=== PATIENT | female | born 1990 | race Caucasian/White ===

== ENCOUNTER → 2024-09-26 15:15 | Outpatient (REF) | payer OTHER, SELFPAY | LOC: PNTC 15:15 | PROVIDERS: ATTENDING PHYSICIAN Obstetrics & Gynecology | DX: Z36.0 Encounter for antenatal screening for chromosomal anomalies (principal); Z36.82 Encounter for antenatal screening for nuchal translucency | CPT/HCPCS: 76801; 76813 ==

== ENCOUNTER → 2024-11-21 14:44 | Outpatient (REF) | payer OTHER, SELFPAY | LOC: PNTC 14:44 | PROVIDERS: ATTENDING PHYSICIAN Obstetrics & Gynecology | DX: O09.819 Supervision of pregnancy resulting from assisted reproductive technology, unspecified trimester (principal); N80.9 Endometriosis, unspecified; M45.9 Ankylosing spondylitis of unspecified sites in spine; O99.891 Other specified diseases and conditions complicating pregnancy | CPT/HCPCS: 76811; 76817 ==

== ENCOUNTER → 2025-01-08 16:48 | Outpatient (REF) | payer OTHER, SELFPAY | LOC: PNTC 16:48 | PROVIDERS: ATTENDING PHYSICIAN Obstetrics & Gynecology | DX: O24.419 Gestational diabetes mellitus in pregnancy, unspecified control (principal) | CPT/HCPCS: 76816 ==

== ENCOUNTER → 2025-01-09 08:40 | Outpatient (REF) | payer OTHER, SELFPAY ==
--- NOTE | 2025-01-09 07:46 | PN.DIAED06 ---
Meal Plan - Gestational
- Breakfast
Gestational Diabetes Meal Plan Name: 1800 calories
Breakfast - Total Carbohydrate (grams): 30 (no fruit before noon)
Breakfast - Starch Carbohydrate: 1
Breakfast - Fruit Carbohydrate: 0
Breakfast - Milk Carbohydrate: 1
Breakfast - Nonstarchy Vegetables: Yes
Breakfast - Meat/Protein: 1
Breakfast - Fat: 2
- Morning Snack
Morning Snack - Total Carbohydrate (grams): 30 (no fruit before noon)
Morning Snack - Starch Carbohydrate: 1
Morning Snack - Fruit Carbohydrate: 0
Morning Snack - Milk Carbohydrate: 1
Morning Snack - Nonstarchy Vegetables: Yes
Morning Snack - Meat/Protein: 0.5
Morning Snack - Fat: 0
- Lunch
Lunch - Total Carbohydrate (grams): 45
Lunch - Starch Carbohydrate: 2
Lunch - Fruit Carbohydrate: 1
Lunch - Milk Carbohydrate: 0
Lunch - Nonstarchy Vegetables: Yes
Lunch - Meat/Protein: 2
Lunch - Fat: 1
- Afternoon Snack
Afternoon Snack - Total Carbohydrate (grams): 30
Afternoon Snack - Starch Carbohydrate: 1
Afternoon Snack - Fruit Carbohydrate: 1
Afternoon Snack - Milk Carbohydrate: 0
Afternoon Snack - Nonstarchy Vegetables: Yes
Afternoon Snack - Meat/Protein: 1
Afternoon Snack - Fat: 0
- Dinner
Dinner - Total Carbohydrate (grams): 45
Dinner - Starch Carbohydrate: 2
Dinner - Fruit Carbohydrate: 0
Dinner - Milk Carbohydrate: 1
Dinner - Nonstarchy Vegetables: Yes
Dinner - Meat/Protein: 2
Dinner - Fat: 2
- Evening Snack
Evening Snack - Total Carbohydrate (grams): 30
Evening Snack - Starch Carbohydrate: 1
Evening Snack - Fruit Carbohydrate: 0
Evening Snack - Milk Carbohydrate: 1
Evening Snack - Nonstarchy Vegetables: Yes
Evening Snack - Meat/Protein: 1
Evening Snack - Fat: 1
--- NOTE | 2025-01-09 10:06 | PN.DE ---
Diabetes Education
- -
01/09/2025 GESTATIONAL DIABETES CONSULT
Met with Ms. Maharaj today for medical nutrition therapy, she is G1, P1, with BRITNEY 04/04/2025.
Explained glucose metabolism in body and what occurs during to cause increase blood sugar. Discussed importance of keeping BS well controlled to avoid complications to the baby during and after (macrosomia, hypoglycemia).
Discussed macronutrients, provided with 1800 jm GDM meal plan, she admits to eating a lot of carbs and chocolate prior to GSD diagnosis.
Discussed physical activity, however, she is currently not exercising other than walking her dog. Daniela was encouraged to start exercising by taking a walk daily after each meal if possible and working up to 30 minutes a day. She was receptive
to the idea and stated that she would make the effort to start exercising.
Serenity presented to the appointment with a new Accu-Chek glucometer with supplies. Reviewed proper testing technique, testing sites and testing pattern. She is aware to test FBS and 2 hr pp each meal. Expected results for FBS <95 mg/dl and 2 hr pp
<120 mg/dl. Noted for blood sugar of 117mg/dL this morning, she did not eat a meal but did have a taste of peanut butter. Log sheet provided for her to record results, she will send a 4-day meal log with all her FBG and 2hr Post prandial glucose
numbers to this office for review. In addition, she will send all her glucose readings [facility] every Tuesday.
She was encouraged to reach out should she require insulin.
== END ==
LOC: DES 08:40
PROVIDERS: ATTENDING PHYSICIAN Obstetrics & Gynecology
DX: O24.419 Gestational diabetes mellitus in pregnancy, unspecified control (principal)
CPT/HCPCS: 99078

== ENCOUNTER → 2025-01-24 11:44 | Outpatient (REF) | payer OTHER, SELFPAY | LOC: DES 11:44 | PROVIDERS: ATTENDING PHYSICIAN Obstetrics & Gynecology | DX: O24.419 Gestational diabetes mellitus in pregnancy, unspecified control (principal) | CPT/HCPCS: 99078 ==

== ENCOUNTER → 2025-02-13 15:53 | Outpatient (REF) | payer OTHER, SELFPAY | LOC: PNTC 15:53 | PROVIDERS: ATTENDING PHYSICIAN Student in an Organized Health Care Education/Training Program | DX: O09.819 Supervision of pregnancy resulting from assisted reproductive technology, unspecified trimester (principal); O24.414 Gestational diabetes mellitus in pregnancy, insulin controlled | CPT/HCPCS: 59025; 76816 ==

== ENCOUNTER → 2025-02-18 15:52 | Outpatient (REF) | payer OTHER, SELFPAY | LOC: PNTC 15:52 | PROVIDERS: ATTENDING PHYSICIAN Obstetrics & Gynecology | DX: O09.529 Supervision of elderly multigravida, unspecified trimester (principal); O24.419 Gestational diabetes mellitus in pregnancy, unspecified control; O09.819 Supervision of pregnancy resulting from assisted reproductive technology, unspecified trimester | CPT/HCPCS: 59025; 76818 ==

== ENCOUNTER → 2025-02-25 16:24 | Outpatient (REF) | payer OTHER, SELFPAY | LOC: PNTC 16:24 | PROVIDERS: ATTENDING PHYSICIAN Obstetrics & Gynecology | DX: O09.529 Supervision of elderly multigravida, unspecified trimester (principal) | CPT/HCPCS: 59025; 76815 ==

== ENCOUNTER → 2025-03-04 16:26 | Outpatient (REF) | payer OTHER, SELFPAY | LOC: PNTC 16:26 | PROVIDERS: ATTENDING PHYSICIAN Obstetrics & Gynecology | DX: O09.813 Supervision of pregnancy resulting from assisted reproductive technology, third trimester (principal); M45.9 Ankylosing spondylitis of unspecified sites in spine; O24.414 Gestational diabetes mellitus in pregnancy, insulin controlled | CPT/HCPCS: 59025; 76815 ==

== ENCOUNTER → 2025-03-11 16:32 | Outpatient (REF) | payer OTHER, SELFPAY | LOC: PNTC 16:32 | PROVIDERS: ATTENDING PHYSICIAN Obstetrics & Gynecology | DX: O09.819 Supervision of pregnancy resulting from assisted reproductive technology, unspecified trimester (principal); O24.414 Gestational diabetes mellitus in pregnancy, insulin controlled; M45.9 Ankylosing spondylitis of unspecified sites in spine | CPT/HCPCS: 59025; 76816 ==

== ENCOUNTER → 2025-03-18 16:39 | Outpatient (REF) | payer OTHER, SELFPAY | LOC: PNTC 16:39 | PROVIDERS: ATTENDING PHYSICIAN Obstetrics & Gynecology | DX: O24.414 Gestational diabetes mellitus in pregnancy, insulin controlled (principal); O09.819 Supervision of pregnancy resulting from assisted reproductive technology, unspecified trimester; M45.9 Ankylosing spondylitis of unspecified sites in spine | CPT/HCPCS: 59025 ==

== ENCOUNTER → 2025-03-25 16:31 | Outpatient (REF) | payer OTHER, SELFPAY | LOC: PNTC 16:31 | PROVIDERS: ATTENDING PHYSICIAN Obstetrics & Gynecology | DX: O09.819 Supervision of pregnancy resulting from assisted reproductive technology, unspecified trimester (principal) | CPT/HCPCS: 59025; 76815 ==

== ENCOUNTER 2025-03-30 11:44 | Observation (INO) | payer OTHER, SELFPAY ==
[2025-03-30 12:12] VITALS: BP 125/72; BMI 31.2
[2025-03-30 12:54] LABS: Hematocrit 37.0 % (37.0-47.0); Hemoglobin 13.0 g/dL (12.0-16.0); Mean Corp Hgb Conc. 35.1 g/dL (33.0-37.0); Mean Corpuscular Volume 89.6 fL (81.0-99.0); Nucleated Red Blood Cells % 0 %; Platelet Count 187 10^3/uL (130-400); Red Cell Dist. Width 13.4 % (11.5-14.5)
[2025-03-30 13:18] LABS: ALT (SGPT) 15 U/L (0-35); AST (SGOT) 22 U/L (14-36); Albumin 3.8 g/dl (3.5-5.0); Alkaline Phosphatase 167 U/L (38-126); Blood Urea Nitrogen 10 mg/dl (7-17); Calcium 9.3 mg/dl (8.4-10.2); Carbon Dioxide 21 mmol/L (22-30); Chloride 108 mmol/L (98-107); Estimated Creatinine Clearance 117 ml/min; Glucose 131 mg/dl (70-99); Potassium 4.6 mmol/L (3.5-5.1); Sodium 135 mmol/L (135-145); Total Protein 6.9 g/dl (6.3-8.2); Uric Acid 5.4 mg/dl (2.5-6.2); eGFR > 60.00
[2025-03-30 13:23] LABS: Urine Character Clear (Clear)
[2025-03-30 13:45] LABS: Urine Red Blood Cell None Seen /HPF (0-2); Urine Squamous Cell >30 /LPF (Few); Urine White Cell 0-2 /HPF (0-5)
== END 2025-03-30 15:31 | disposition home or self-care (01) ==
LOC: LDRP 11:44
PROVIDERS: ADMITTING PHYSICIAN Obstetrics & Gynecology
DX: O26.893 Other specified pregnancy related conditions, third trimester (principal); R11.0 Nausea; Z3A.39 39 weeks gestation of pregnancy
CPT/HCPCS: 59025; 80053; 81003; 81015; 82570; 84156; 84550; 85025; 86850; 86900; 86901; G0378

== ENCOUNTER 2025-04-01 17:53 | Inpatient (IN) | payer OTHER, SELFPAY ==
[2025-04-01 17:29] VITALS: BP 151/88; BMI 26.8
[2025-04-01 17:31] LABS: Hematocrit 35.8 % (37.0-47.0); Hemoglobin 12.8 g/dL (12.0-16.0); Mean Corp Hgb Conc. 35.8 g/dL (33.0-37.0); Mean Corpuscular Volume 89.7 fL (81.0-99.0); Platelet Count 182 10^3/uL (130-400); Red Cell Dist. Width 13.5 % (11.5-14.5)
[2025-04-01 17:52] LABS: ALT (SGPT) 14 U/L (0-35); AST (SGOT) 20 U/L (14-36); Albumin 3.6 g/dl (3.5-5.0); Alkaline Phosphatase 149 U/L (38-126); Blood Urea Nitrogen 12 mg/dl (7-17); Calcium 9.4 mg/dl (8.4-10.2); Carbon Dioxide 22 mmol/L (22-30); Chloride 108 mmol/L (98-107); Estimated Creatinine Clearance 119 ml/min; Glucose 106 mg/dl (70-99); Potassium 4.4 mmol/L (3.5-5.1); Sodium 134 mmol/L (135-145); Total Protein 6.6 g/dl (6.3-8.2); eGFR > 60.00
[2025-04-01] MEDS: PEPCID 20 MG PO (19:18)
[2025-04-01] MEDS: CYTOTEC 25 MICROGRAM VAG (20:15)
[2025-04-01 22:08] LABS: Glucose - Point of Care 106 mg/dl (70-99)
[2025-04-01] MEDS: HUMULIN N KWIKPEN 20 UNITS SC (22:09)
[2025-04-02] MEDS: CYTOTEC 50 MICROGRAM PO ×3 (00:29→10:23)
[2025-04-02] MEDS: STADOL 1 MG IV ×3 (04:11→12:15)
[2025-04-02 07:11] LABS: Glucose - Point of Care 81 mg/dl (70-99)
[2025-04-02] MEDS: PEPCID 20 MG PO ×2 (08:07→22:47)
[2025-04-02 10:13] LABS: Glucose - Point of Care 107 mg/dl (70-99)
[2025-04-02] MEDS: CYTOTEC PO ×3 (12:31→21:42)
[2025-04-02 12:37] LABS: Glucose - Point of Care 91 mg/dl (70-99)
[2025-04-02] MEDS: PITOCIN 30 UNITS/NSS 500 ML IV (14:29)
[2025-04-02] MEDS: LR 1000 IV (14:29)
[2025-04-02 14:39] LABS: Glucose - Point of Care 89 mg/dl (70-99)
[2025-04-02 16:17] LABS: Glucose - Point of Care 85 mg/dl (70-99)
[2025-04-02] MEDS: FENTANYL/BUPIVACAINE 100 EPIDURAL (17:42)
[2025-04-02] MEDS: SUBLIMAZE 100 MCG EPIDURAL (17:42)
[2025-04-02 18:04] LABS: Glucose - Point of Care 77 mg/dl (70-99)
[2025-04-02 20:07] LABS: Glucose - Point of Care 150 mg/dl (70-99)
[2025-04-02 22:01] LABS: Glucose - Point of Care 65 mg/dl (70-99)
[2025-04-02 22:22] LABS: Glucose - Point of Care 71 mg/dl (70-99)
[2025-04-02 23:58] LABS: Glucose - Point of Care 77 mg/dl (70-99)
[2025-04-03] MEDS: FENTANYL/BUPIVACAINE 100 EPIDURAL ×2 (00:31→07:32)
[2025-04-03] MEDS: LR 1000 IV (01:59)
[2025-04-03 02:04] LABS: Glucose - Point of Care 78 mg/dl (70-99)
[2025-04-03 04:04] LABS: Glucose - Point of Care 75 mg/dl (70-99)
[2025-04-03 06:07] LABS: Glucose - Point of Care 68 mg/dl (70-99)
[2025-04-03 06:23] LABS: Glucose - Point of Care 79 mg/dl (70-99)
[2025-04-03] MEDS: ZITHROMAX INFUSION 250 IV (08:35)
[2025-04-03] MEDS: ANCEF 10 IV (08:35)
[2025-04-03] MEDS: BICITRA 30 ML PO (08:43)
[2025-04-03] MEDS: TYLENOL 975 MG PO (08:43)
[2025-04-03] MEDS: PITOCIN 30 UNITS/NSS 500 ML IV (10:15)
[2025-04-03] MEDS: PROCARDIA XL (EXTENDED RELEASE) 30 MG PO (12:11)
[2025-04-03 12:34] LABS: Hematocrit 33.9 % (37.0-47.0); Hemoglobin 12.0 g/dL (12.0-16.0); Mean Corp Hgb Conc. 35.4 g/dL (33.0-37.0); Mean Corpuscular Volume 88.7 fL (81.0-99.0); Platelet Count 154 10^3/uL (130-400); Red Cell Dist. Width 13.4 % (11.5-14.5)
[2025-04-03 13:00] LABS: AST (SGOT) 26 U/L (14-36); Albumin 3.2 g/dl (3.5-5.0); Alkaline Phosphatase 155 U/L (38-126); Blood Urea Nitrogen 7 mg/dl (7-17); Calcium 9.0 mg/dl (8.4-10.2); Carbon Dioxide 22 mmol/L (22-30); Chloride 110 mmol/L (98-107); Estimated Creatinine Clearance 119 ml/min; Glucose 104 mg/dl (70-99); Potassium 4.0 mmol/L (3.5-5.1); Sodium 134 mmol/L (135-145); Total Protein 6.0 g/dl (6.3-8.2); eGFR > 60.00
[2025-04-03 13:27] LABS: ALT (SGPT) 14 U/L (0-35)
[2025-04-03] MEDS: ROXICODONE 10 MG PO (17:49)
[2025-04-03] MEDS: TYLENOL 650 MG PO ×2 (17:49→23:38)
[2025-04-03] MEDS: COLACE 100 MG PO (20:23)
[2025-04-03] MEDS: ROXICODONE 5 MG PO (23:39)
[2025-04-04] MEDS: ROXICODONE 5 MG PO ×3 (04:11→18:22)
[2025-04-04] MEDS: TYLENOL 650 MG PO ×4 (04:11→22:24)
[2025-04-04 04:50] LABS: Hematocrit 31.1 % (37.0-47.0); Hemoglobin 10.8 g/dL (12.0-16.0); Mean Corp Hgb Conc. 34.7 g/dL (33.0-37.0); Mean Corpuscular Volume 91.5 fL (81.0-99.0); Platelet Count 174 10^3/uL (130-400); Red Cell Dist. Width 13.6 % (11.5-14.5)
[2025-04-04] MEDS: MOTRIN 600 MG PO ×3 (06:43→19:50)
--- NOTE | 2025-04-04 08:23 | W.PN.ANS.POP ---
Anesthesia Post Operative
- Anesthesia Post Op Note
Vital Signs Stable-See Nursing Note: Yes
Airway Patent: Yes
Adequate Pain Control: Yes
Change in Mental Status: No
Current Postoperative Nausea & Vomiting: No
Anesthesia Complications: No
General Anesthetic Recall: No
Unplanned Admission: No
Post Op Hydration Adequate: Yes
[2025-04-04] MEDS: PROCARDIA XL (EXTENDED RELEASE) 30 MG PO (08:54)
[2025-04-04] MEDS: PRENATAL PLUS 1 TABLET PO (08:54)
[2025-04-04] MEDS: COLACE 100 MG PO (08:56)
[2025-04-04] MEDS: PEPCID 20 MG PO (08:56)
[2025-04-04] MEDS: COLACE PO (13:39)
[2025-04-04] MEDS: ROXICODONE 10 MG PO (22:25)
[2025-04-05] MEDS: MOTRIN 600 MG PO ×3 (02:41→17:38)
[2025-04-05] MEDS: ROXICODONE 5 MG PO ×2 (03:47→15:20)
[2025-04-05] MEDS: TYLENOL 650 MG PO ×4 (03:48→19:50)
[2025-04-05] MEDS: PROCARDIA XL (EXTENDED RELEASE) 30 MG PO (09:23)
[2025-04-05] MEDS: MYLICON 80 MG PO (09:23)
[2025-04-05] MEDS: PEPCID 20 MG PO (09:24)
[2025-04-05] MEDS: PRENATAL PLUS 1 TABLET PO (09:24)
[2025-04-05] MEDS: ROXICODONE 10 MG PO ×2 (09:26→19:51)
[2025-04-05] MEDS: COLACE 100 MG PO (09:29)
[2025-04-05 11:17] LABS: Syphilis/T. pallidum Ab Reflex Negative (Negative)
[2025-04-06] MEDS: MOTRIN 600 MG PO ×2 (00:04→06:08)
[2025-04-06] MEDS: TYLENOL 650 MG PO ×2 (00:05→06:09)
[2025-04-06] MEDS: ROXICODONE 10 MG PO (00:05)
[2025-04-06] MEDS: PROCARDIA XL (EXTENDED RELEASE) 30 MG PO (08:15)
[2025-04-06] MEDS: PEPCID PO (08:16)
[2025-04-06] MEDS: COLACE 100 MG PO (08:16)
[2025-04-06] MEDS: PRENATAL PLUS 1 TABLET PO (08:16)
--- NOTE | 2025-04-06 09:37 | W.DS.TRANS ---
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
-
Discharge Instructions:
Discharge Diagnosis/Procedures cs
Instructions:
Stand-Alone Forms: LDRP Delivery
Changes to Home Medications: No
Discharge Medications:
DC Medications w/original date entered in [employer]
docusate sodium 50 mg capsule 50 mg PO DAILY Constipation 03/30/25
famotidine 20 mg tablet (Pepcid) 20 mg PO DAILY Gastrointestinal Issue 03/30/25
prenat.vits,jm,axm-nmff-zafsx 1 tab PO DAILY Supplement 03/30/25
ibuprofen 600 mg tablet 600 mg PO Q6HPRN PRN cramps #90 tabs 04/06/25
nifedipine 30 mg tablet,extended release 30 mg PO DAILY #42 tabs 04/06/25
oxycodone 5 mg tablet 5 mg PO Q4HPRN PRN moderate pain #6 tabs 04/06/25
Home Medication Changes
Pending Results: No
Total time spent discharging patient (in min): 20
== END 2025-04-06 11:38 | disposition home or self-care (01) | DRG 788 ==
LOC: LDRP 17:53
PROVIDERS: Obstetrics & Gynecology; ADMITTING PHYSICIAN Student in an Organized Health Care Education/Training Program
PROC: 3E0P7VZ Introduction of Hormone into Female Reproductive, Via Natural or Artificial Opening (ICD-10-PCS; 2025-04-01)
PROC: 10907ZC Drainage of Amniotic Fluid, Therapeutic from Products of Conception, Via Natural or Artificial Opening (ICD-10-PCS; 2025-04-02)
PROC: 10D00Z1 Extraction of Products of Conception, Low, Open Approach (ICD-10-PCS; 2025-04-03)
PROC: 3E0P05Z Introduction of Adhesion Barrier into Female Reproductive, Open Approach (ICD-10-PCS; 2025-04-03)
DX: O24.424 Gestational diabetes mellitus in childbirth, insulin controlled (principal); Z3A.39 39 weeks gestation of pregnancy; Z37.0 Single live birth; O69.81X0 Labor and delivery complicated by cord around neck, without compression, not applicable or unspecified; O13.4 Gestational [pregnancy-induced] hypertension without significant proteinuria, complicating childbirth; O76 Abnormality in fetal heart rate and rhythm complicating labor and delivery; R31.9 Hematuria, unspecified; M45.9 Ankylosing spondylitis of unspecified sites in spine; N80.9 Endometriosis, unspecified; N73.6 Female pelvic peritoneal adhesions (postinfective); F90.9 Attention-deficit hyperactivity disorder, unspecified type; O99.344 Other mental disorders complicating childbirth; Z80.3 Family history of malignant neoplasm of breast; Z80.1 Family history of malignant neoplasm of trachea, bronchus and lung; Z80.0 Family history of malignant neoplasm of digestive organs; Z80.42 Family history of malignant neoplasm of prostate; Z14.8 Genetic carrier of other disease
CPT/HCPCS: 76815; 80053; 82570; 82962; 84156; 85027; 86780; 86850; 86900; 86901; 88307; C1765

== ENCOUNTER 2025-05-21 13:25 | Emergency (ER) | payer OTHER, SELFPAY ==
[2025-05-21 13:41] VITALS: BP 141/79
[2025-05-21 14:18] LABS: ALT (SGPT) 93 U/L (0-35); AST (SGOT) 57 U/L (14-36); Albumin 4.9 g/dl (3.5-5.0); Alkaline Phosphatase 94 U/L (38-126); Blood Urea Nitrogen 8 mg/dl (7-17); Calcium 9.5 mg/dl (8.4-10.2); Carbon Dioxide 26 mmol/L (22-30); Chloride 106 mmol/L (98-107); Glucose 105 mg/dl (70-99); Potassium 4.4 mmol/L (3.5-5.1); Sodium 141 mmol/L (135-145); Total Protein 7.7 g/dl (6.3-8.2); eGFR > 60.00
[2025-05-21 14:35] LABS: Hematocrit 34.3 % (37.0-47.0); Hemoglobin 11.7 g/dL (12.0-16.0); Mean Corp Hgb Conc. 34.1 g/dL (33.0-37.0); Mean Corpuscular Volume 90.0 fL (81.0-99.0); Nucleated Red Blood Cells % 0 %; Platelet Count 222 10^3/uL (130-400); Red Cell Dist. Width 12.1 % (11.5-14.5)
--- NOTE | 2025-05-21 16:36 | ED.GENMED ---
Addendum entered and electronically signed by Ulises Ortega MD, Resident 05/21/25 19:27:
This serves as an addendum to the ED HPI on 05/21/2025.
Her transvaginal ultrasound was unremarkable. There was no findings suggestive of retained products of conception.
I discussed with Daniela the need to follow-up with her PRACTICE ADVISOR as per appointment this upcoming Tuesday. I also sent a prescription of TXA to her pharmacy in case her bleeding worsens and she wishes to slow it down prior to her appointment. We
discussed the risks and benefits of this.
Original Note:
History of Present Illness
<Ulises Ortega MD, Resident - Last Filed: 05/21/25 18:29>
General
Chief Complaint: Vaginal Bleeding
Source: patient
Time Seen by Provider: 05/21/25 16:11
History of Present Illness
History of Present Illness:
Daniela is a 35-year-old female with endometriosis and ovarian cysts who is 7 weeks from an uncomplicated with Dr. Carrizales who presents with 7 weeks of vaginal bleeding that has worsened in the last 24 hours and 2 weeks of
sharp, waxing and waning lower abdominal pain. She states that since , she has been having vaginal bleeding, however it has slowly gotten heavier and she is unsure if this is her period. She states that in the last 24 hours her bleeding has
gotten heavier and she is going through about 1 pad per hour. She also reports a 5/10 sharp pain in the lower abdomen, right worse than left. She states that this comes and goes and is not relieved nor incited by anything specific. She contacted
her PRACTICE ADVISOR on Tuesday who scheduled her for a transvaginal and abdominal ultrasound and check up for this upcoming Tuesday. However, given that she had increased bleeding, she decided to come to the ED for expedited evaluation. She denies fever,
chills, nausea, vomiting, sweats, recent infections, SOB, and palpitations.
Past History
<Ulises Ortega MD, Resident - Last Filed: 05/21/25 18:29>
Past History
ED Past Medical History: Other (Ankylosing Spondylitis, ADHD, Edometriosis)
ED Past Surgical History:
Social History
Tobacco: Non-smoker
Alcohol: None
Drug: None
Personal: Single
Living: with family
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
Family History
Family History: Other (n/c)
Phy Exam
<Ulises Ortega MD, Resident - Last Filed: 05/21/25 18:29>
General Physical Exam
General Presentation: well appearing
General Skin: warm
General Habitus: normal
General Mental: alert
Cardiovascular Exam
Cardiovascular Exam: regular rate/rhythm
Pulmonary Exam
Pulmonary Exam: no respiratory distress
Gastrointestinal Exam
Gastrointestinal Exam: normal bowel sounds, soft, no pulsatile mass and tender (diffusely throughout lower abdomen, right worst than left)
Course
<Ulises Ortega MD, Resident - Last Filed: 05/21/25 18:29>
Orders/Labs/Results
Orders:
Orders
05/21/25 13:51
Complete Blood Count/With Diff Urgent
Comprehensive Metabolic Panel Urgent
05/21/25 16:32
Abdominal Ltd US [US Abdomen Limited] Urgent
Comment:
Reason For Exam: , pain
Transvaginal US [US Pelvis W Transvag Combined] Urgent
Comment:
Reason For Exam: bleeding
Abnormal Lab Results
05/21/25
13:51
RBC 3.81 L 10^6/uL
(4.20-5.40)
Hgb 11.7 L g/dL
(12.0-16.0)
Hct 34.3 L %
(37.0-47.0)
Glucose 105 H mg/dl
(70-99)
AST 57 H U/L
(14-36)
ALT 93 H U/L
(0-35)
05/21/25 13:51
05/21/25 13:51
Vital Signs
Initial and Last Documented VS:
Initial Vital Signs
Temp Pulse Resp BP Pulse Ox
98.4 F 81 16 141/79 98
05/21/25 13:41 05/21/25 13:41 05/21/25 13:41 05/21/25 13:41 05/21/25 13:41
Last Documented Vital Signs
Temp Pulse Resp BP Pulse Ox
98.4 F 75 18 128/74 100
05/21/25 13:41 05/21/25 18:39 05/21/25 18:39 05/21/25 18:39 05/21/25 18:39
<Sammy Workman, DO - Last Filed: 05/21/25 18:55>
Orders/Labs/Results
Orders:
Orders
05/21/25 13:51
Complete Blood Count/With Diff Urgent
Comprehensive Metabolic Panel Urgent
05/21/25 16:32
Abdominal Ltd US [US Abdomen Limited] Urgent
Comment:
Reason For Exam: , pain
Transvaginal US [US Pelvis W Transvag Combined] Urgent
Comment:
Reason For Exam: bleeding
Abnormal Lab Results
05/21/25
13:51
RBC 3.81 L 10^6/uL
(4.20-5.40)
Hgb 11.7 L g/dL
(12.0-16.0)
Hct 34.3 L %
(37.0-47.0)
Glucose 105 H mg/dl
(70-99)
AST 57 H U/L
(14-36)
ALT 93 H U/L
(0-35)
05/21/25 13:51
05/21/25 13:51
Vital Signs
Initial and Last Documented VS:
Initial Vital Signs
Temp Pulse Resp BP Pulse Ox
98.4 F 81 16 141/79 98
05/21/25 13:41 05/21/25 13:41 05/21/25 13:41 05/21/25 13:41 05/21/25 13:41
Last Documented Vital Signs
Temp Pulse Resp BP Pulse Ox
98.4 F 75 18 128/74 100
05/21/25 13:41 05/21/25 18:39 05/21/25 18:39 05/21/25 18:39 05/21/25 18:39
<Ulises Ortega MD, Resident - Last Filed: 05/21/25 18:29>
MDM/Problems Addressed
Differential Diagnosis Includes:
Menstruation
Secondary PPH
RPOC
Endometriosis
Pelvic Abscess
Appendicitis
Cholecystitis
MDM/Problems Addressed:
Daniela is a 35-year-old female with endometriosis and ovarian cysts who is 7 weeks from an uncomplicated with Dr. Carrizales who presents with 7 weeks of vaginal bleeding that has worsened in the last 24 hours and 2 weeks of
sharp, waxing and waning lower abdominal pain.
#Vaginal Bleeding
#Lower Abdominal Pain
Given that she is HDS and asymptomatic, her bleeding is most likely her first menstrual cycle ISO known endometriosis post-. However, secondary to hemorrhage and retained products of conception are still on the differential
along with appendicitis and cholecystitis.
- CBC and CMP wnl
- AST 57, ALT 93
- Abdominal US: Images show no sonographic abnormality. No soft tissue lesions or fluid collections
- TVUS:
<Ulises Ortega MD, Resident - Last Filed: 05/21/25 18:29>
*Pulse Oximetry
SaO2: 98
Oxygen Mode of Delivery: Room air
<Sammy Workman DO - Last Filed: 05/21/25 18:55>
*Pulse Oximetry
Patient hypoxic: no
*Critical Care Note
Total Time (30-74mins, 75-104mins- exclusive of procedures): Not Applicable
ED Attending Note
<Ulises Ortega MD, Resident - Last Filed: 05/21/25 18:29>
-
Portions of this chart may have been created with voice recognition software.� Occasional wrong word or��sound alike� substitutions may have occurred due to the inherent limitations of voice recognition software.
<Sammy Workman DO - Last Filed: 05/21/25 18:55>
ED Attending Note
Patient seen and examined by attending physician: Yes
I performed a history and physical exam of patient and discussed management with resident, I reviewed resident's note and agree with documented findings and plan of care.: No
ED Attending Note:
Patient was seen by the resident prior to receiving all the data the patient had to go home to take care of her children, I did review the and imaging with the resident instructed her to tell the patient to follow-up with her PRACTICE ADVISOR that she was in
the period
Discharge Plan
Departure
Patient Disposition: Home (Routine Discharge)
Date of Disposition: 05/21/25
Time of Disposition: 18:37
Patient with high blood pressure during this ER visit?: No
Condition: Good
Discharge Problem:
Vaginal bleeding
Prescriptions:
New
tranexamic acid 650 mg tablet
1,300 mg PO TID 5 Days Qty: 30 0RF
No Action
nifedipine 30 mg Tablet Extended Release
30 mg PO DAILY Qty: 42 0RF
ibuprofen 600 mg Tablet
600 mg PO Q6HPRN PRN (Reason: cramps) Qty: 90 0RF
oxycodone 5 mg Tablet
5 mg PO Q4HPRN PRN (Reason: moderate pain) Qty: 6 0RF
famotidine [Pepcid] 20 mg Tablet
20 mg PO DAILY
docusate sodium 50 mg Capsule
50 mg PO DAILY
prenat.vits,jm,lzp-mffa-lcqvp Tablet
1 tab PO DAILY
Referrals:
Prasad Carrizales MD [Family Provider, Gynecology]
Activity Restrictions/Additional Instructions:
Follow up with your OBGYN on Tuesday.
I have sent the prescription for TXA in case your bleeding worsens. You may take it as we discussed or wait until appointment with OBGYN.
Interventions
Interventions:
*Risk Screen - Suicide Last Done: 05/21/25 13:41
*Neglect/Abuse Screening Last Done: 05/21/25 13:41
*Nursing Disposition Last Done: 05/21/25 18:43
ED-Female Genitourinary Assessment Last Done: 05/21/25 16:10
Discharge Date and Time
Discharge Date/Time: 05/21/25 18:44
Print Language: GHANAIAN
[2025-05-21 18:39] VITALS: BP 128/74
== END 2025-05-21 18:44 | disposition home or self-care (01) ==
LOC: EMR 13:25
PROVIDERS: EMERGENCY PHYSICIAN Emergency Medicine; FAMILY PHYSICIAN Obstetrics & Gynecology
DX: N93.9 Abnormal uterine and vaginal bleeding, unspecified (principal); M45.9 Ankylosing spondylitis of unspecified sites in spine; F90.9 Attention-deficit hyperactivity disorder, unspecified type; N80.9 Endometriosis, unspecified; Z98.891 History of uterine scar from previous surgery
CPT/HCPCS: 99284; 76705; 76830; 76856; 80053; 85025

== ENCOUNTER → 2025-06-04 19:33 | Outpatient (REF) | payer OTHER, SELFPAY | LOC: WDC 19:33 | PROVIDERS: ATTENDING PHYSICIAN Obstetrics & Gynecology | DX: Z12.31 Encounter for screening mammogram for malignant neoplasm of breast (principal) | CPT/HCPCS: 77063; 77067 ==

== ENCOUNTER → 2025-06-19 11:29 | Outpatient (REF) | payer OTHER, SELFPAY | LOC: RCS 11:29 | PROVIDERS: ATTENDING PHYSICIAN Specialist | DX: F90.0 Attention-deficit hyperactivity disorder, predominantly inattentive type (principal); Z79.899 Other long term (current) drug therapy | CPT/HCPCS: 93005 ==